=== PATIENT | male | born 2000 | race African-American/Black ===

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

== ENCOUNTER 2022-07-07 09:37 | Emergency (ER) | payer OTHER ==
[~2022-07-07] VITALS: Ht 182.9 cm; Wt 68.0 kg
[~2022-07-07 09:37] MED LIST changes: +IBUP-2029 MT
[2022-07-07 09:43] VITALS: BP 124/77
[2022-07-07] MEDS ORDERED: IBUP-2028 MT (10:16)
== END 2022-07-07 10:52 | disposition home or self-care (01) ==
LOC: ER 10:26
DX: U07.1 COVID-19 (principal); J45.909 Unspecified asthma, uncomplicated
CPT/HCPCS: 99282

== ENCOUNTER 2023-01-31 12:52 | Emergency (ER) | payer OTHER ==
[~2023-01-31] VITALS: Ht 185.4 cm; Wt 68.2 kg
[~2023-01-31 12:52] MED LIST changes: +IBUP-2028 MT
[2023-01-31 13:16] VITALS: TEMP 97.9; O2SAT 99
[2023-01-31 14:15] VITALS: BP 119/68; PULSE 65; RESP 16
[2023-01-31] MEDS ORDERED: KETOROLAC 30MG/ML VIAL IM ONE (14:15)
[2023-01-31] MEDS ORDERED: IBUP-2029 MT (14:45)
[2023-01-31] MEDS ORDERED: CEPH500C2 MT (14:45)
[2023-01-31] MEDS ORDERED: SULF1TAB48 MT (14:45)
== END 2023-01-31 15:45 | disposition home or self-care (01) ==
LOC: ER 12:52
DX: L03.012 Cellulitis of left finger (principal); J45.909 Unspecified asthma, uncomplicated
CPT/HCPCS: 99283; 73130; 96372; J1885

== ENCOUNTER 2023-03-17 19:33 | Emergency (ER) | payer OTHER ==
[~2023-03-17] VITALS: Ht 182.9 cm; Wt 68.0 kg
[~2023-03-17 19:33] MED LIST changes: +AMOX1TAB16 MT; +CEPH500C2 MT; +SULF1TAB48 MT
[2023-03-17 19:39] VITALS: BP 117/67; O2SAT 100
[2023-03-17] MEDS ORDERED: IBUP-2029 MT (20:21)
[2023-03-17] MEDS ORDERED: CLIN-194 MT (20:21)
[2023-03-17 20:23] VITALS: PULSE 88; RESP 18; TEMP 98.5
== END 2023-03-17 20:23 | disposition home or self-care (01) ==
LOC: ER 19:33
DX: L73.9 Follicular disorder, unspecified (principal); J45.909 Unspecified asthma, uncomplicated; Z79.899 Other long term (current) drug therapy
CPT/HCPCS: 99283